=== PATIENT | male | born 1965 | race Caucasian/White ===

== ENCOUNTER 2018-12-27 22:48 | Inpatient (IN) | payer BC ==
[2018-12-27] MEDS ORDERED: Ondansetron 4 MG/2 ML SDV IVPUSH ONE (23:21)
[2018-12-27] MEDS ORDERED: Ondansetron 4 MG/2 ML SDV ONE (23:22)
[2018-12-27] MEDS ORDERED: Sodium Chloride 0.9% 1,000 ML IV SCH (23:45)
[2018-12-27] MEDS ORDERED: Morphine 2 MG/ML Syringe IVPUSH ONE (23:48)
--- NOTE | 2018-12-27 23:58 | EDM.PDOC ---
ED HPI GENERAL MEDICAL PROBLEM - General Chief Complaint: Abdominal Pain Stated Complaint: SEVERE SIDE PAIN Time Seen by Provider: 12/27/18 23:56 Source of Information: Reports: Patient History Limitations: Reports: No Limitations - History of Present Illness INITIAL COMMENTS - FREE TEXT/NARRATIVE: pt arrived with severer pain in the rt lower abdoman. This started about 4 thirty this pm. He does have a past history of kidney stones Onset: Today, Sudden Duration: Hour(s): Location: Reports: Abdomen Associated Symptoms: Reports: Loss of Appetite, Nausea/Vomiting, Other (pt has been very uncomfortable. ) Right Lower Abdominal Pain Score (Numeric/FACES): 8 - Related Data Allergies Allergy/AdvReac Type Severity Reaction Status Date / Time hydromorphone [From Dilaudid] Allergy Agitation Verified 12/27/18 23:40 Home Meds: Home Meds Hydrochlorothiazide 25 mg PO DAILY 08/24/13 [History] Lisinopril 40 mg PO DAILY 08/24/13 [History] Mometasone Furoate [Nasonex Salt Flat] 1 - 2 spray NICK BEDTIME PRN 08/24/13 [History ] buPROPion [Wellbutrin] 150 mg PO BEDTIME 12/27/18 [History] buPROPion [Wellbutrin] 300 mg PO DAILY 12/27/18 [History] Past Medical History Cardiovascular History: Reports: Hypertension Gastrointestinal History: Reports: GERD Musculoskeletal History: Reports: Fracture Neurological History: Reports: Concussion, Other (See Below) Other Neuro History: heat stroke - Infectious Disease History Infectious Disease History: Reports: Other (See Below) Other Infectious Disease History: lymes - Past Surgical History GI Surgical History: Reports: Cholecystectomy, Hernia, Abdominal, Other (See Below) Other GI Surgeries/Procedures: aquiles Musculoskeletal Surgical History: Reports: Other (See Below) Other Musculoskeletal Surgeries/Procedures:: right ankle Social & Family History - Tobacco Use Smoking Status *Q: Never Smoker Second Hand Smoke Exposure: No - Caffeine Use Caffeine Use: Reports: Soda - Recreational Drug Use Recreational Drug Use: No ED ROS GENERAL - Review of Systems Review Of Systems: See Below Constitutional: Reports: Diaphoresis, Decreased Appetite HEENT: Reports: No Symptoms Respiratory: Reports: No Symptoms Cardiovascular: Reports: No Symptoms Endocrine: Reports: No Symptoms GI/Abdominal: Reports: Abdominal Pain, Decreased Appetite, Distension, Nausea, Vomiting : Reports: No Symptoms Musculoskeletal: Reports: No Symptoms Skin: Reports: No Symptoms ED EXAM, GI/ABD - Physical Exam Exam: See Below Text/Narrative:: pt arrived with acute abdomanal pain in the rt lower quadrant. This started about 4 thirty this afternoon. Exam Limited By: No Limitations General Appearance: Alert, Anxious, Moderate Distress Ears: Normal TMs Nose: Normal Inspection Throat/Mouth: Normal Inspection Head: Atraumatic Neck: Normal Inspection Respiratory/Chest: No Respiratory Distress Cardiovascular: Regular Rate, Rhythm GI/Abdominal Exam: Tender, Other (pt is tender and guarded in the rt lower abdoman,. ) (Male) Exam: Deferred Rectal (Males) Exam: Deferred Back Exam: Normal Inspection Extremities: Normal Inspection Neurological: Alert, Oriented, Normal Cognition Course - Vital Signs Last Recorded V/S: Last Vital Signs Temp 36.1 C 12/27/18 23:33 Pulse 97 12/27/18 23:33 Resp 20 12/27/18 23:33 BP 156/106 H 12/27/18 23:33 Pulse Ox 91 L 12/27/18 23:33 - Orders/Labs/Meds Orders: Active Orders 24 hr Category Date Time Status Sodium Chloride 0.9% [Normal Saline] 1,000 ml Med 12/27/18 23:45 Active IV ASDIRECTED Sodium Chloride 0.9% [Normal Saline] 1,000 ml Med 12/28/18 01:15 Ordered IV ASDIRECTED Medication Orders Sodium Chloride (Normal Saline) 1,000 mls @ 999 mls/hr IV ASDIRECTED PRIYANKA Last Admin: 12/28/18 00:07 Dose: 999 mls/hr Sodium Chloride (Normal Saline) 1,000 mls @ 999 mls/hr IV ASDIRECTED PRIYANKA Labs: Laboratory Tests 12/27/18 12/27/18 12/27/18 Range/Units 23:47 23:50 23:50 WBC 19.8 H (4.5-11.0) K/uL RBC 5.66 (4.30-5.90) M/uL Hgb 16.2 H (12.0-15.0) g/dL Hct 47.8 (40.0-54.0) % MCV 85 (80-98) fL MCH 29 (27-31) pg MCHC 34 (32-36) % Plt Count 377 (150-400) K/uL Neut % (Auto) 72 H (36-66) % Lymph % (Auto) 16 L (24-44) % [place] % (Auto) 10 H (2-6) % Eos % (Auto) 2 (2-4) % Baso % (Auto) 0 (0-1) % Sodium 138 L (140-148) mmol/L Potassium 4.0 (3.6-5.2) mmol/L Chloride 103 (100-108) mmol/L Carbon Dioxide 25 (21-32) mmol/L Anion Gap 14.0 (5.0-14.0) mmol/L BUN 18 (7-18) mg/dL Creatinine 1.2 (0.8-1.3) mg/dL Est Cr Clr Drug Dosing 69.27 mL/min Estimated GFR (MDRD) > 60 (>60) Glucose 115 H (74-106) mg/dL Calcium 9.6 (8.5-10.1) mg/dL Total Bilirubin 0.4 (0.2-1.0) mg/dL AST 24 (15-37) U/L ALT 54 (12-78) U/L Alkaline Phosphatase 56 (46-116) U/L C-Reactive Protein 0.32 H (0.0-0.3) mg/dL Total Protein 7.8 (6.4-8.2) g/dL Albumin 4.2 (3.4-5.0) g/dL Globulin 3.6 H (2.3-3.5) g/dL Albumin/Globulin Ratio 1.2 (1.2-2.2) Urine Color Yellow (YELLOW) Urine Appearance Clear (CLEAR) Urine pH 6.0 (5.0-8.0) Ur Specific [place] 1.030 (1.008-1.030) Urine Protein Negative (NEGATIVE) mg/dL Urine Glucose (UA) Normal (NEGATIVE) mg/dL Urine Ketones Negative (NEGATIVE) mg/dL Urine Occult Blood Trace (NEGATIVE) Urine Nitrite Negative (NEGATIVE) Urine Bilirubin Negative (NEGATIVE) Urine Urobilinogen Normal (0.2-1.0) EU/dL Ur Leukocyte Esterase Negative (NEGATIVE) Urine RBC 0-5 (0-5) Urine WBC 0-5 (0-5) Ur Epithelial Cells Few Amorphous Sediment Not seen Urine Bacteria Rare Urine Mucus Not seen Meds: Medications Generic Name Dose Route Start Last Admin Trade Name Freq PRN Reason Stop Dose Admin Sodium Chloride 1,000 mls @ 999 mls/hr 12/27/18 23:45 12/28/18 00:07 Normal Saline IV 999 mls/hr ASDIRECTED PRIYANKA Administration Sodium Chloride 1,000 mls @ 999 mls/hr 12/28/18 01:15 Normal Saline IV ASDIRECTED PRIYANKA Discontinued Medications Generic Name Dose Route Start Last Admin Trade Name Freq PRN Reason Stop Dose Admin Sodium Chloride 85 mls @ 3.5 mls/sec 12/28/18 00:33 12/28/18 00:47 Normal Saline IV 12/28/18 00:34 3.5 mls/sec ASDIRECTED STA Administration Iopamidol 150 ml 12/28/18 00:33 12/28/18 00:47 Isovue-300 (61%) IV 12/28/18 00:34 150 ml . DIRECTED STA Administration Morphine Sulfate 2 mg 12/27/18 23:48 12/28/18 00:07 Morphine IVPUSH 12/27/18 23:49 2 mg ONETIME ONE Administration Morphine Sulfate 2 mg 12/28/18 01:16 Morphine IVPUSH 12/28/18 01:17 ONETIME ONE Ondansetron HCl 4 mg 12/27/18 23:21 12/27/18 23:30 Zofran IVPUSH 12/27/18 23:22 4 mg ONETIME ONE Administration Ondansetron HCl Confirm 12/27/18 23:22 12/27/18 23:45 Zofran Administered 12/27/18 23:23 Not Given Dose 4 [facility] - Re-Assessments/Exams Free Text/Narrative Re-Assessment/Exam: 12/28/18 01:24 pt had a wbc greater than 19,000. He had no fever. His cat scan of the abdoman showed acute appendicitis. Departure - Departure Time of Disposition: 01:25 Disposition: Admitted As Inpatient 68 Condition: Fair Clinical Impression: Acute appendicitis - Discharge Information Referrals: Anny Childs PA [Primary Care Provider] - Forms: ED Department Discharge Care Plan Goals: admit to Dr Walter. - My Orders Last 24 Hours: My Active Orders 12/27/18 23:45 Sodium Chloride 0.9% [Normal Saline] 1,000 ml IV ASDIRECTED 12/28/18 01:15 Sodium Chloride 0.9% [Normal Saline] 1,000 ml IV ASDIRECTED - Assessment/Plan Last 24 Hours: My Active Orders 12/27/18 23:45 Sodium Chloride 0.9% [Normal Saline] 1,000 ml IV ASDIRECTED 12/28/18 01:15 Sodium Chloride 0.9% [Normal Saline] 1,000 ml IV ASDIRECTED
[2018-12-28] MEDS ORDERED: Iopamidol 612 MG/ML 150 ML Bottle IV STA (00:33)
[2018-12-28] MEDS ORDERED: Sodium Chloride 0.9% 1,000 ML IV SCH ×2 (01:15→07:15)
[2018-12-28] MEDS ORDERED: Morphine 2 MG/ML Syringe IVPUSH ONE (01:16)
--- NOTE | 2018-12-28 01:18 | CRLCT ---
INDICATION: Right-sided abdominal pain TECHNIQUE: CT abdomen and pelvis acquired with 150 cc Isovue 300 IV contrast. COMPARISON: October 09, 2012 FINDINGS: Lower chest: 5 mm pulmonary nodule right middle lobe image 2 series 2. 3 mm pulmonary nodule left lower lobe image 18 series 2. Small hiatal hernia. Surgical material seen around the hernia. Liver: Hepatic steatosis. Spleen: Unremarkable. Pancreas: Unremarkable. Gallbladder and bile ducts: S/p cholecystectomy. Adrenal glands: Unremarkable. Kidneys: There are a few subcentimeter hypodensities on the right kidney, too small to accurately characterize. GI tract: The appendix measures 1.2 cm in diameter. There is mild periappendiceal fat stranding. No extraluminal air or abscess. There is an appendicolith. Vascular structures: Unremarkable. Lymph nodes: Unremarkable. Miscellaneous: Unremarkable. No free air or significant free fluid. Pelvic Organs: Unremarkable. Bones: Unremarkable for age. IMPRESSION: Acute appendicitis. No extraluminal air or abscess. Findings discussed with Dr. Cherry at 1:15 a.m. on December 28, 2018. Bilateral pulmonary nodules. Follow-up per Fleischner society guidelines recommended, as listed below. Small hiatal hernia with postsurgical changes. Hepatic steatosis. Status post cholecystectomy. MULTIPLE LOW RISK - nodule less than 6 mm: No routine follow-up. - nodule 6-8 mm: CT at 3-6 months, then consider CT at 18-24 months. - nodule greater than 8 mm: CT at 3-6 months, then consider CT at 18-24 months. MULTIPLE HIGH RISK - nodule less than 6 mm: Optional CT at 12 months. - nodule 6-8 mm: CT at 3-6 months, then at 18-24 months. - nodule greater than 8 mm: CT at 3-6 months, then at 18-24 months. Please note that all CT scans at this facility use dose modulation, iterative reconstruction, and/or weight-based dosing when appropriate to reduce radiation dose to as low as reasonably achievable. Dictated by Erin Naidu MD @ Dec 28 2018 1:07AM Signed by Dr. Erin Naidu @ Dec 28 2018 1:16AM
[2018-12-28] MEDS ORDERED: Piperacillin/Tazobactam 3.375 GM in Sodium Chloride 0.9% 50 ML IV SCH (02:00)
[2018-12-28] MEDS ORDERED: Morphine 4 MG/ML Syringe IVPUSH ONE (02:04)
[2018-12-28] MEDS ORDERED: LORazepam 2 MG/ML SDV IVPUSH ONE (02:05)
[2018-12-28] MEDS ORDERED: Ondansetron 4 MG/2 ML SDV IVPUSH PRN (02:51)
[2018-12-28] MEDS ORDERED: Promethazine 25 MG in Sodium Chloride 0.9% 50 ML IV PRN (02:52)
[2018-12-28] MEDS ORDERED: Promethazine 12.5 MG in Sodium Chloride 0.9% 50 ML IV PRN (02:52)
[2018-12-28] MEDS ORDERED: Scopolamine 1.5 MG Transdermal Patch TOP PRN (02:53)
[2018-12-28] MEDS ORDERED: diphenhydrAMINE 50 MG/ML SDV IV PRN (02:58)
[2018-12-28] MEDS ORDERED: diphenhydrAMINE 25 MG Cap PO PRN (02:59)
[2018-12-28] MEDS ORDERED: Nicotine 14 MG/24 Hr Patch TRDERM PRN (02:59)
[2018-12-28] MEDS ORDERED: Morphine 4 MG/ML Syringe IV PRN ×2 (03:00→07:03)
[2018-12-28] MEDS ORDERED: fentaNYL 100 MCG/2 ML SDV IV PRN (03:01)
[2018-12-28] MEDS: Sodium Chloride 0.9% 1,000 ML IV SCH ×2 (04:41→14:35)
[2018-12-28] MEDS ORDERED: Bupivacaine 0.5%/EPINEPHrine 1:200,000 50 ML MDV ONE (06:17)
[2018-12-28] MEDS ORDERED: Rocuronium 50 MG/5 ML Vial ONE (06:33)
[2018-12-28] MEDS ORDERED: Ondansetron 4 MG/2 ML SDV ONE (06:33)
[2018-12-28] MEDS ORDERED: Glycopyrrolate 0.2 MG/ML 5 ML MDV ONE (06:33)
[2018-12-28] MEDS ORDERED: Propofol 200 MG/20 ML SDV ONE (06:33)
[2018-12-28] MEDS ORDERED: Dexamethasone 4 MG/ML SDV ONE (06:33)
[2018-12-28] MEDS ORDERED: Succinylcholine 200 MG/10 ML MDV ONE (06:33)
[2018-12-28] MEDS ORDERED: Neostigmine Methylsulfate 1 MG/ML 5 ML Syringe ONE (06:33)
[2018-12-28] MEDS ORDERED: fentaNYL 250 MCG/5 ML SDV ONE (06:33)
[2018-12-28] MEDS ORDERED: hydrOXYzine HCl 100 MG/2 ML SDV IM PRN (07:04)
[2018-12-28] MEDS ORDERED: Lactated Ringers 1,000 ML ONE (07:31)
[2018-12-28] MEDS: Piperacillin/Tazobactam/Dext 3.375 GM in Premix Bag 1 BAG IV SCH ×3 (07:53→20:08)
--- NOTE | 2018-12-28 11:04 | OR ---
DATE OF PROCEDURE: 12/28/2018 SURGEON: Pancho Walter MD PROCEDURE: Laparoscopic appendectomy. FINDINGS: Appendicitis, nonperforated. No evidence of abscess. COMPLICATIONS: None. 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 ANESTHESIA: General/local. RISKS: Risks, benefits, alternatives, and limitations including, but not limited to infection, bleeding, and perforation of abdominal structures, injury to bowel and bladder, other risks not listed here were explained to the patient, who wished to proceed. PROCEDURE IN DETAIL: The patient was placed in supine position. A supraumbilical curvilinear incision was made. A Veress needle was used to enter the abdomen without abnormality and a drop test was performed without abnormality. This was then followed by an Optiview trocar. No evidence of enterotomy or injury was noted. Two additional 5 mm ports were entered under direct visualization, one in the right upper quadrant, one retirement between the umbilicus and the pubic bone. These were also entered under direct visualization. No evidence of injuries noted. Appendix was readily identified. It was densely adhered to the right abdominal wall. This was freed using electrocautery. Once this was mobilized, a feliz load stapler was able to be used to transect the base of the appendix. This was delivered from the abdomen without difficulty. The staple line was inspected multiple times. No abnormalities were noted. The abdomen was then irrigated with 2 L of normal saline. Once irrigation was completed, the patient was moved in multiple positions to suction and irrigate the remaining fluid. Entry point was inspected. No abnormalities were noted. The air was removed. The wounds were closed with 3-0 Vicryl and 4-0 Vicryl after irrigation. Dressings were applied. The patient tolerated the procedure well. Pancho Walter MD /[id number]
[2018-12-28] MEDS: Acetaminophen/HYDROcodone 325-5 MG Tab PO PRN ×2 (15:06→20:07)
[2018-12-29] MEDS: Piperacillin/Tazobactam/Dext 3.375 GM in Premix Bag 1 BAG IV SCH ×4 (01:51→19:37)
[2018-12-29] MEDS: Acetaminophen/HYDROcodone 325-5 MG Tab PO PRN ×4 (01:52→22:16)
--- NOTE | 2018-12-29 09:22 | CONS ---
DATE OF SERVICE: 12/28/2018 REFERRING PHYSICIAN: CONSULTING PHYSICIAN: Pancho Walter MD REASON FOR CONSULTATION: Right lower quadrant abdominal pain. HISTORY OF PRESENT ILLNESS: This is a pleasant 53-year-old male, who has had right lower quadrant abdominal pain, started at approximately 1600 hours, modified by history of kidney stones, associated with nausea and vomiting. Pain is 8-9/10, made worse by movement. PAST MEDICAL HISTORY: Hypertension, cholelithiasis, cholecystitis, GERD, history of chronic hernia, and ankle repair. SOCIAL HISTORY: Does not smoke. 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 FAMILY HISTORY: No family history of squamous cell carcinoma. REVIEW OF SYSTEMS: GENERAL: Please see above and below. HEENT: No symptoms. RESPIRATORY: No shortness of breath. CARDIOVASCULAR: No history of myocardial infarction. ENDOCRINE: No symptoms. GI: As described above and below. GENITOURINARY: No dysuria. MUSCULOSKELETAL: No history of ankle fracture. SKIN: No other abnormalities. The remainder review of systems is reviewed and is negative. PHYSICAL EXAMINATION: VITAL SIGNS: Stable. GENERAL: The patient is appropriate for condition. HEENT: Pupils are equal. NECK: Supple. LUNGS: Clear. CARDIOVASCULAR: Regular rhythm and rate. ABDOMEN: Tenderness to palpation in the right lower quadrant. EXTREMITIES: Full range of motion. NEUROLOGIC: Alert and oriented x3. PSYCH: No gross depression. LABORATORY RESULTS: Show white blood cell count of 18,000. His creatinine is 1.1. Urinalysis is negative. IMAGING: I did review the CT scan with acute appendicitis without evidence of abscess. ASSESSMENT: Appendicitis. PLAN: The patient will be taken to the operating room for laparoscopic appendectomy. We discussed risks, benefits, alternatives, and limitations including, but not limited to infection, bleeding, and injury to abdominal structures, the possibility of open surgery and other risks not listed here. The patient understands these risks and wishes to proceed. Pancho Walter MD /[id number]
--- NOTE | 2018-12-29 11:01 | PN ---
DATE OF SERVICE: 12/29/2018 SUBJECTIVE: Patient is doing better today. Pain is controlled. No nausea, vomiting, shortness of breath, or chest pain. Passing gas. OBJECTIVE: VITAL SIGNS: Vital signs are stable, afebrile. CARDIOVASCULAR: Regular rhythm and rate. RESPIRATORY: Lungs are clear to auscultation bilaterally. ABDOMEN: Incision is healing well. ASSESSMENT: Status post appendectomy. PLAN: The patient will be given another 24 hours of antibiotics. I will reassess at that time. He is to advance his diet. He may shower. Activity is encouraged. Pancho Walter MD /[id number]
[2018-12-30] MEDS: Piperacillin/Tazobactam/Dext 3.375 GM in Premix Bag 1 BAG IV SCH ×2 (02:06→07:03)
[2018-12-30] MEDS: Acetaminophen/HYDROcodone 325-5 MG Tab PO PRN (05:29)
--- NOTE | 2018-12-30 11:04 | DISCH ---
DISCHARGE DIAGNOSIS: Appendicitis. HOSPITAL COURSE: A pleasant 53-year-old male who was diagnosed with appendicitis. The patient underwent an uneventful laparoscopic appendectomy. He had non-perforated appendicitis. Prior to discharge, his pain was well controlled. He had a normal white blood cell count. He had no fever for greater than 48 hours. No nausea, vomiting, shortness of breath or chest pain, and having bowel movements. Pain is well controlled with very limited narcotics. FOLLOWUP: With Surgery in 7 to 14 days. ACTIVITY: No lifting greater than 30 pounds x30 days. DISCHARGE MEDICATIONS: Please see MAR, but include [place] for pain.
--- NOTE | 2018-12-30 11:10 | PN ---
DATE OF SERVICE: 12/30/2018 SUBJECTIVE: The patient is doing very well. Pain is well controlled. No nausea, vomiting, shortness of breath, or chest pain. Passing gas, a large amount. Is having some bowel movements. OBJECTIVE: VITAL SIGNS: Stable. He is afebrile per nursing report. CARDIOVASCULAR: Regular rhythm and rate. RESPIRATORY: Lungs are clear to auscultation bilaterally. ABDOMEN: Incision is healing well. ASSESSMENT: Status post laparoscopic appendectomy. PLAN: The patient will be discharged today. Please see discharge summary for further details. Pancho Walter MD /[id number]
== END 2018-12-30 08:45 | disposition home or self-care (01) | DRG 225 ==
LOC: JP.ED 22:48 → JP.MS 12-28 01:44
PROVIDERS: ADMIT Surgery; ATTEND Surgery
PROC: 0DTJ4ZZ Resection of Appendix, Percutaneous Endoscopic Approach (ICD-10-PCS; principal; 2018-12-28)
DX: K35.80 Unspecified acute appendicitis (principal); K21.9 Gastro-esophageal reflux disease without esophagitis; I10 Essential (primary) hypertension; Z88.8 Allergy status to other drugs, medicaments and biological substances; Z87.442 Personal history of urinary calculi; Z79.899 Other long term (current) drug therapy; Z90.49 Acquired absence of other specified parts of digestive tract; Z98.890 Other specified postprocedural states
CPT/HCPCS: 36415; 74177; 80048; 80053; 81001; 85025; 85027; 86140; 87070; 87075; 87205; 96361; 96374; 96375; 99285-25; A9270-GY; J0330; J1100; J2060; J2270; J2405; J2543; J2704; J2710; J3010; J3490; J7030; J7050; J7120

== ENCOUNTER 2019-03-01 19:03 | Emergency (ER) | payer SELFPAY ==
--- NOTE | 2019-03-01 21:09 | EDM.PDOC ---
ED HPI GENERAL MEDICAL PROBLEM - General Chief Complaint: Skin Complaint Stated Complaint: LEFT ARM RED/ITCHY Time Seen by Provider: 03/01/19 20:17 Source of Information: Reports: Patient History Limitations: Reports: No Limitations - History of Present Illness INITIAL COMMENTS - FREE TEXT/NARRATIVE: chief complaint: skin rash, exposure to scabies This is a 54 year old male, present to ER with his . 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 Has been exposed to scabies in the class room now with a similar rash to the left lower arm - not including fingers or thumb. 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: Other (see below) (benadryl ) - Related Data Allergies Allergy/AdvReac Type Severity Reaction Status Date / Time hydromorphone [From Dilaudid] Allergy Agitation Verified 03/01/19 20:23 Home Meds: Home Meds Hydrochlorothiazide 25 mg PO DAILY 08/24/13 [History] Lisinopril 40 mg PO DAILY 08/24/13 [History] buPROPion [Wellbutrin] 150 mg PO BEDTIME 12/27/18 [History] buPROPion [Wellbutrin] 300 mg PO DAILY 12/27/18 [History] Past Medical History HEENT History: Reports: Impaired Vision Cardiovascular History: Reports: Hypertension Respiratory History: Reports: Asthma, Sleep Apnea Gastrointestinal History: Reports: GERD, Hiatal Hernia Genitourinary History: Reports: Renal Calculus Musculoskeletal History: Reports: Arthritis, Fracture Neurological History: Reports: Concussion, Other (See Below) Other Neuro History: heat stroke Psychiatric History: Reports: Anxiety - Infectious Disease History Infectious Disease History: Reports: Mononucleosis Other Infectious Disease History: lymes - Past Surgical History GI Surgical History: Reports: Appendectomy, Cholecystectomy, Hernia, Abdominal, Aquiles Fundoplication, Other (See Below) Other GI Surgeries/Procedures: aquiles Musculoskeletal Surgical History: Reports: Other (See Below) Other Musculoskeletal Surgeries/Procedures:: right ankle Social & Family History - Tobacco Use Smoking Status *Q: Never Smoker - Caffeine Use Caffeine Use: Reports: Soda - Recreational Drug Use Recreational Drug Use: No - Living Situation & Occupation Living situation: Reports: 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[email or web address] ED ROS GENERAL - Review of Systems Review Of Systems: Unable To Obtain Constitutional: Reports: No Symptoms HEENT: Reports: No Symptoms Respiratory: Reports: No Symptoms Cardiovascular: Reports: No Symptoms Endocrine: Reports: No Symptoms GI/Abdominal: Reports: No Symptoms : Reports: No Symptoms Musculoskeletal: Reports: No Symptoms Skin: Reports: No Symptoms Neurological: Reports: No Symptoms Psychiatric: Reports: No Symptoms Hematologic/Lymphatic: Reports: No Symptoms Immunologic: Reports: No Symptoms ED EXAM, SKIN/RASH Exam: See Below Exam Limited By: No Limitations General Appearance: Alert, WD/WN, No Apparent Distress Neurological: Alert, Oriented, CN II-XII Intact, Normal Cognition, Normal Gait, Normal Reflexes, No Motor/Sensory Deficits Psychiatric: Normal Affect, Normal Mood Skin: Erythema, Rash Location, Skin: Upper Extremity, Left Characteristics: Maculopapular Associated features: Warmth, Inflammation (intense pruritis to rash) Lymphatic: No Adenopathy Course - Vital Signs Last Recorded V/S: Last Vital Signs Temp 36.1 C 03/01/19 20:25 Pulse 81 03/01/19 20:25 Resp 17 03/01/19 20:25 BP 146/81 H 03/01/19 20:25 Pulse Ox 96 03/01/19 20:25 - Re-Assessments/Exams Free Text/Narrative Re-Assessment/Exam: discussed infection control and medical treatment agrees with plan of care Departure - Departure Time of Disposition: 21:06 Disposition: Home, Self-Care 01 Condition: Good Clinical Impression: Infestation by Sarcoptes scabiei - Discharge Information *PRESCRIPTION DRUG MONITORING PROGRAM REVIEWED*: No *COPY OF PRESCRIPTION DRUG MONITORING REPORT IN PATIENT THO: No Instructions: Scabies, Adult Referrals: Anny Childs PA [Primary Care Provider] - Forms: ED Department Discharge, ED Return to Work/School Form Care Plan Goals: Scabies -Permethrin 5% apply as directed -keep rash area wrapped until treated -continue Benadryl 25 mg po every 6 hours as needed for rash return to ER for any increase redness, pain, discharge, or any concerns. - Problem List & Annotations (1) Infestation by Sarcoptes scabiei SNOMED Code(s): 905012247, [id number] Code(s): B86 - SCABIES Status: Acute Priority: High - Problem List Review Problem List Initiated/Reviewed/Updated: Yes - Assessment/Plan Plan: Scabies -Permethrin 5% apply as directed -keep rash area wrapped until treated -continue Benadryl 25 mg po every 6 hours as needed for rash return to ER for any increase redness, pain, discharge, or any concerns.
== END 2019-03-01 21:20 | disposition home or self-care (01) ==
LOC: JP.ED 19:03
DX: B86 Scabies (principal); I10 Essential (primary) hypertension; J45.909 Unspecified asthma, uncomplicated; Z88.5 Allergy status to narcotic agent; Z79.899 Other long term (current) drug therapy
CPT/HCPCS: 99282

== ENCOUNTER 2019-12-19 08:47 | Day surgery (SDC) | payer BC ==
[~2019-12-19 08:47] MED LIST: Acetaminophen 500 MG Tab PO ONE; Albuterol 8 GM Inhaler (PTOM) INH ONE; Bupivacaine 0.5% 50 ML MDV ONE; Dexamethasone 4 MG/ML SDV ONE; Dextrose 5%-Lactated Ringers 1,000 ML IV SCH; Glycopyrrolate 0.2 MG/ML 5 ML MDV ONE; Lidocaine 1% with EPINEPHrine 1:100,000 50 ML MDV ONE; Neostigmine Methylsulfate 1 MG/ML 5 ML Syringe ONE; Ondansetron 4 MG/2 ML SDV ONE; Propofol 200 MG/20 ML SDV ONE; Rocuronium 50 MG/5 ML Vial ONE; Succinylcholine 200 MG/10 ML MDV ONE; fentaNYL 250 MCG/5 ML SDV ONE
[2019-12-19] MEDS ORDERED: ceFAZolin 2 GM in Premix Bag 1 BAG IV ONE (09:00)
[2019-12-19] MEDS ORDERED: Albuterol 8 GM Inhaler INH ONE (09:30)
[2019-12-19] MEDS ORDERED: fentaNYL 250 MCG/5 ML SDV ONE (10:24)
[2019-12-19] MEDS ORDERED: Ondansetron 4 MG/2 ML SDV IVPUSH ONE (13:17)
--- NOTE | 2019-12-31 11:39 | OR ---
DATE OF PROCEDURE: 12/19/2019 SURGEON: Evaristo Hadley MD PREOPERATIVE DIAGNOSIS: Left inguinal hernia. POSTOPERATIVE DIAGNOSES: 1. Incarcerated direct left inguinal hernia. 2. Left ilioinguinal and iliohypogastric nerves at risk for scar entrapment. OPERATIVE PROCEDURES: Left inguinal exploration with: 1. Repair of incarcerated left inguinal hernia with mesh plug technique (57438). 2. Excision of portion of left ilioinguinal nerve (72994). 3. Excision of portion of left iliohypogastric nerve (75052). ANESTHESIA: General. CREDIT RELATIONSHIP MANAGER: Nahomi Joshi PA-C INDICATIONS FOR PROCEDURE: This is a 54-year-old male, presenting with an increasingly symptomatic left inguinal hernia. After preop evaluation and discussion, the patient wished to proceed with an open repair with a mesh plug technique. Potential risks of the procedure including bleeding, infection, injury to underlying viscera, problems with the mesh becoming infected or the hernia recurring were gone over that we will often remove nerve branches in the area that were felt to be likely to be involved in chronic pain resulting in postoperative scarring so as to avoid that neuropathic pain were gone over and the patient wishes to proceed. DETAILS OF PROCEDURE: The patient was taken to the operating room and placed in a supine position. After general endotracheal anesthesia was induced, the abdomen and groin areas were prepped and draped. A standard left inguinal incision was made and carried down through the skin, subcutaneous tissue, and through the external oblique aponeurosis. Subaponeurotic flaps were then raised superiorly and inferiorly, and the cord structures were then mobilized upward and dissection of the cremasteric muscle fibers away from the cord structures showed no evidence of an indirect hernia. The patient did have a large defect in the medial floor consistent with a direct hernia. This was dissected free as it prolapsed down over the pubic bone somewhat and contained some incarcerated component, probably some perivesical fat. This was reduced along with the hernia and an extra-large mesh plug was then selected. This was placed into the defect underneath the fascial edges and fixed to the Don ligament inferiorly with titanium tacking screws to the underside of the conjoint tendon medially, superiorly, and laterally with horizontal mattress sutures of 0 Vicryl stitch. The edge of the conjoint tendon was then affixed to the shelving edge of the inguinal ligament with a running 0 Vicryl stitch. Both the ilioinguinal nerve and iliohypogastric nerves would be at risk for scar entrapment as the flat portion of the mesh plug technique would divide directly over them. Given this, they were divided and then resected out to a far lateral aspect of the incision. The flat portion of the mesh plug system was then placed and sutured lateral to the cord structures with some 3-0 Vicryl stitch and fixed to the pubic tubercle with titanium tacking screw. No further problems were noted at this point and the external oblique aponeurosis approximated with a 3-0 Vicryl stitch as was Britt's fascia and the skin closed with a 4-0 Vicryl subcuticular stitch. The wound was anesthetized with 1% lidocaine mixed with Marcaine and the patient was given some IV Toradol and the patient was taken to the recovery room in satisfactory condition. Physician mechanic's assistant, Nahomi Joshi, played an essential role in assisting in this case, helping to position the patient, retract structures as needed, as well as suturing and cutting sutures when indicated. Her presence improved patient safety and decreased operative time. Evaristo Hadley MD /[id number]
== END 2019-12-19 14:54 | disposition home or self-care (01) ==
LOC: JP.SDS 08:47
PROVIDERS: ATTEND Surgery
DX: K40.30 Unilateral inguinal hernia, with obstruction, without gangrene, not specified as recurrent (principal); G57.82 Other specified mononeuropathies of left lower limb; I10 Essential (primary) hypertension; G47.33 Obstructive sleep apnea (adult) (pediatric); F41.9 Anxiety disorder, unspecified; F90.9 Attention-deficit hyperactivity disorder, unspecified type; E78.00 Pure hypercholesterolemia, unspecified; F41.1 Generalized anxiety disorder; N40.0 Benign prostatic hyperplasia without lower urinary tract symptoms; E78.5 Hyperlipidemia, unspecified; E66.9 Obesity, unspecified; Z68.37 Body mass index [BMI] 37.0-37.9, adult; Z99.89 Dependence on other enabling machines and devices
CPT/HCPCS: 49507; 64772; 88302; A9270; C1713; C1781; J0330; J0690; J1100; J2405; J2704; J2710; J3010; J3490; J7121

== ENCOUNTER 2020-04-18 09:05 | Emergency (ER) | payer BC ==
[2020-04-18] MEDS ORDERED: Ondansetron 4 MG/2 ML SDV IVPUSH ONE (09:52)
[2020-04-18] MEDS ORDERED: Ketorolac 30 MG/ML SDV IVPUSH ONE (09:52)
--- NOTE | 2020-04-18 10:25 | EDM.PDOC ---
ED HPI GENERAL MEDICAL PROBLEM - General Chief Complaint: Genitourinary Problem Stated Complaint: POSSIBLE KIDNEY STONE Time Seen by Provider: 04/18/20 10:05 Source of Information: Reports: Patient, Family History Limitations: Reports: No Limitations - History of Present Illness INITIAL COMMENTS - FREE TEXT/NARRATIVE: 55-year-old male with a history of nephrolithiasis, developed sudden right flank pain, urinary urgency, and significant nausea at 8 AM this morning, roughly 2 hours ago. It feels similar to past episodes of "kidney stones". He has several abdominal surgeries in his history including cholecystectomy and appendectomy and hiatal hernia surgery. No recent illness. Onset: Sudden Duration: Hour(s): (2 hours ago) Location: Reports: Other (Right flank) Associated Symptoms: Reports: Malaise, Nausea/Vomiting. Denies: Confusion, Chest Pain, Cough, Fever/Chills, Headaches, Shortness of Breath - Related Data Allergies Allergy/AdvReac Type Severity Reaction Status Date / Time hydromorphone [From Dilaudid] AdvReac Agitation Verified 04/18/20 10:01 naltrexone AdvReac Nausea and Verified 04/18/20 10:01 Vomiting simvastatin AdvReac Muscle Verified 04/18/20 10:01 Aches Home Meds: Home Meds Hydrochlorothiazide 25 mg PO DAILY 08/24/13 [History] buPROPion [Wellbutrin] 450 mg PO DAILY 12/27/18 [History] Albuterol [Proventil HFA] 1 - 2 puff IH Q4H PRN 12/18/19 [History] Benzonatate [Tessalon Perle] 100 mg PO TID PRN 12/18/19 [History] Codeine/guaiFENesin [guaiFENesin-Codeine Syrup] 10 ml PO Q4HR PRN 12/18/19 [History] Cyclobenzaprine [Flexeril] 10 mg PO TID PRN 12/18/19 [History] Fexofenadine [Katty] 60 mg PO DAILY 12/18/19 [History] Fluticasone Propion/Salmeterol [Advair 250-50 Diskus] 1 puff IH BID 12/18/19 [History] Fluticasone Propionate [Flonase] 2 spray NASBOTH DAILY 12/18/19 [History] Ibuprofen 400 mg PO Q6H PRN 12/18/19 [History] Multivitamin with Minerals [Multiple Vitamin] 1 tab PO DAILY 12/18/19 [History] [place]-3/DHA/Epa/Fish Oil [[place] 3 500 Softgel] 1,000 mg PO DAILY 12/18/19 [History] Omeprazole 20 mg PO DAILY 12/18/19 [History] Ondansetron [Zofran ODT] 4 mg PO Q8H PRN 12/18/19 [History] amLODIPine [Norvasc] 10 mg PO DAILY 12/18/19 [History] tadalafiL [Cialis] 5 mg PO DAILY PRN 04/18/20 [History] Past Medical History HEENT History: Reports: Impaired Vision Cardiovascular History: Reports: Hypertension Respiratory History: Reports: Asthma, Sleep Apnea Gastrointestinal History: Reports: GERD, Hiatal Hernia Genitourinary History: Reports: Renal Calculus Musculoskeletal History: Reports: Arthritis, Fracture Neurological History: Reports: Concussion, Other (See Below) Other Neuro History: heat stroke Psychiatric History: Reports: Anxiety Endocrine/Metabolic History: Reports: Obesity/BMI 30+ - Infectious Disease History Infectious Disease History: Reports: Mononucleosis Other Infectious Disease History: lymes - Past Surgical History Head Surgeries/Procedures: Reports: None HEENT Surgical History: Reports: None Cardiovascular Surgical History: Reports: None Respiratory Surgical History: Reports: None GI Surgical History: Reports: Appendectomy, Cholecystectomy, Hernia, Abdominal, Aquiles Fundoplication, Other (See Below) Other GI Surgeries/Procedures: aquiles Endocrine Surgical History: Reports: None Neurological Surgical History: Reports: None Musculoskeletal Surgical History: Reports: Other (See Below) Other Musculoskeletal Surgeries/Procedures:: right ankle Dermatological Surgical History: Reports: None Social & Family History - Family History Family Medical History: No Pertinent Family History - Tobacco Use Tobacco Use Status *Q: Never Tobacco User Second Hand Smoke Exposure: No - Caffeine Use Caffeine Use: Reports: Soda - Recreational Drug Use Recreational Drug Use: No - Living Situation & Occupation Living situation: Reports: 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 Denies: Fever, Chills Respiratory: Denies: Shortness of Breath Cardiovascular: Denies: Chest Pain GI/Abdominal: Reports: Abdominal Pain (Right lower quadrant radiating to the right flank), Nausea. Denies: Diarrhea : Reports: Flank Pain, Urgency. Denies: Hematuria (Right side) Skin: Reports: No Symptoms Neurological: Reports: No Symptoms Psychiatric: Reports: Anxiety ED EXAM, GENERAL - Physical Exam Exam: See Below Exam Limited By: No Limitations General Appearance: Alert, Moderate Distress Respiratory/Chest: No Respiratory Distress, Lungs Clear Cardiovascular: Regular Rate, Rhythm GI/Abdominal: Tender (Reacts with some discomfort to palpation along the right abdomen, significantly overweight) Back Exam: No: CVA Tenderness (R), CVA Tenderness (L) Psychiatric: Anxious Skin Exam: Warm, Dry Course - Vital Signs Last Recorded V/S: Last Vital Signs Temp 98.3 F 04/18/20 10:06 Pulse 79 04/18/20 10:06 Resp 20 04/18/20 10:06 BP 167/101 H 04/18/20 10:06 Pulse Ox 97 04/18/20 10:06 - Orders/Labs/Meds Labs: Laboratory Tests 04/18/20 Range/Units 10:12 Urine Color Yellow (YELLOW) Urine Appearance Clear (CLEAR) Urine pH 7.0 (5.0-8.0) Ur Specific [place] >= 1.030 (1.008-1.030) Urine Protein Negative (NEGATIVE) mg/dL Urine Glucose (UA) Negative (NEGATIVE) mg/dL Urine Ketones Negative (NEGATIVE) mg/dL Urine Occult Blood Moderate H (NEGATIVE) Urine Nitrite Negative (NEGATIVE) Urine Bilirubin Negative (NEGATIVE) Urine Urobilinogen 0.2 (0.2-1.0) EU/dL Ur Leukocyte Esterase Negative (NEGATIVE) Urine RBC 50-75 H (0-5) Urine WBC Not seen (0-5) Ur Epithelial Cells Rare Amorphous Sediment Not seen Urine Bacteria Not seen Urine Mucus Not seen Meds: Medications Discontinued Medications Generic Name Dose Route Start Last Admin Trade Name Freq PRN Reason Stop Dose Admin Ketorolac Tromethamine 30 mg 04/18/20 09:52 04/18/20 09:58 Toradol IVPUSH 04/18/20 09:53 30 mg ONETIME ONE Administration Ondansetron HCl 4 mg 04/18/20 09:52 04/18/20 09:59 Zofran IVPUSH 04/18/20 09:53 4 mg ONETIME ONE Administration Tamsulosin HCl 0.4 mg 04/18/20 11:19 04/18/20 11:26 Flomax PO 04/18/20 11:20 0.4 mg ONETIME ONE Administration - Re-Assessments/Exams Free Text/Narrative Re-Assessment/Exam: 04/18/20 10:24 IV was started, patient was given 30 mg of IV Toradol and 4 mg of IV Zofran. When his symptoms started to improve, he was sent back for a CT of the abdomen and pelvis without contrast. UA was also sent for evaluation. 04/18/20 11:30 UA revealed RBCs but no evidence of infection. Medications did help his symptoms, CT confirmed a 2 to 3 mm mid ureteral stone on the right side. There was mild hydronephrosis. He was given 0.4 mg of oral Flomax, and will be discharged with additional doses of Toradol, 10 doses of hydrocodone, and a prescription for daily Flomax if needed. He can return if still having signi ficant symptoms after 2 or 3 days or return sooner if worsening such as fever, vomiting the medication or intractable pain Departure - Departure Time of Disposition: 11:52 Disposition: Home, Self-Care 01 Clinical Impression: Kidney stone - Discharge Information Instructions: Kidney Stones Referrals: Anny Childs PA [Primary Care Provider] - Forms: ED Department Discharge Care Plan Goals: As long as you are continuing to have symptoms, take 1 Toradol pill every 6 hours and add hydrocodone for extra pain control if needed. 1 Flomax daily, and consider rechecking in 2 to 3 days if still having any symptoms or return anytime if worsening despite treatment. You should be rechecked sooner if you develop a fever, vomiting the medications are having persistent intractable pain. Sepsis Event Note (ED) - Evaluation Sepsis Screening Result: No Definite Risk - Focused Exam Vital Signs: Vital Signs Temp Pulse Resp BP Pulse Ox 04/18/20 10:06 98.3 F 79 20 167/101 H 97 04/18/20 09:28 98.3 F 79 20 167/101 H 97
[2020-04-18] MEDS ORDERED: Tamsulosin 0.4 MG Cap.ER PO ONE (11:19)
--- NOTE | 2020-04-18 11:25 | CT ---
Abdomen Pelvis wo Cont CLINICAL HISTORY: Right flank pain COMPARISON: June 2019. TECHNIQUE: Axial tomographic images are obtained from the dome of the diaphragm to the pubic symphysis without IV contrast enhancement. No oral contrast was used. The dosage reduction and iterative reconstruction techniques employed. FINDINGS: The lung bases are clear. There appears to be a a previous Harlan procedure The liver shows some mildly heterogeneous low-attenuation which is felt to represent some diffuse fatty infiltration. The gallbladder has been removed. The spleen has a normal size and shape. The pancreas shows no mass or inflammatory change. The adrenal glands appear normal bilaterally. The kidneys show a punctate nonobstructing renal calculus in both lower poles there is some mild right-sided pelvocaliectasis. There is a 2 x 3 mm stone in the mid right ureter. Left ureter has normal course and caliber The bladder is nondistended. The aorta has a normal contour. There is no suspicious retroperitoneal adenopathy. Small intestinal configuration is nonacute. The appendix has been removed. Abdominal pelvic fat planes and low pelvic side antunez are well demarcated. IMPRESSION: 2 x 3 mm right mid ureteral stone. Mild right-sided pelvocaliectasis Punctate nonobstructing stone lower pole both kidneys.
== END 2020-04-18 11:52 | disposition home or self-care (01) ==
LOC: JP.ED 09:05
DX: N20.2 Calculus of kidney with calculus of ureter (principal); I10 Essential (primary) hypertension; J45.909 Unspecified asthma, uncomplicated; K21.9 Gastro-esophageal reflux disease without esophagitis; F41.9 Anxiety disorder, unspecified; E66.9 Obesity, unspecified; Z68.37 Body mass index [BMI] 37.0-37.9, adult; Z88.5 Allergy status to narcotic agent; Z88.8 Allergy status to other drugs, medicaments and biological substances; Z79.899 Other long term (current) drug therapy
CPT/HCPCS: 74176; 74176-26; 81001; 96374; 96375; 99283; 99284-25; A9270-GY; J1885; J2405

== ENCOUNTER 2020-04-29 06:35 | Day surgery (SDC) | payer BC ==
[2020-04-29] MEDS ORDERED: Bupivacaine 0.5% 30 ML SDV ONE (06:49)
[2020-04-29] MEDS ORDERED: ceFAZolin 2 GM in Premix Bag 1 BAG IV ONE (07:00)
[2020-04-29] MEDS ORDERED: Lactated Ringers 1,000 ML IV SCH (07:00)
[2020-04-29] MEDS ORDERED: ceFAZolin 2 GM in Sodium Chloride 0.9% 100 ML IV ONE (07:00)
[2020-04-29] MEDS ORDERED: Midazolam 1 MG/ML 2 ML SDV ONE ×2 (07:19→09:24)
[2020-04-29] MEDS ORDERED: fentaNYL 100 MCG/2 ML SDV ONE ×3 (07:19→09:55)
[2020-04-29] MEDS ORDERED: Propofol 200 MG/20 ML SDV ONE ×6 (07:19→09:54)
--- NOTE | 2020-05-01 12:06 | OR ---
DATE OF PROCEDURE: 04/29/2020 SURGEON: Damien Finn MD PREOPERATIVE DIAGNOSIS: SLAP tear, right shoulder. POSTOPERATIVE DIAGNOSES: 1. Complex SLAP tear, right shoulder. 2. Degenerative joint disease, glenohumeral joint. 3. Severe tendinopathy of biceps tendon. 4. Mild tendinopathy, subscapularis. 5. Rotator cuff impingement. PROCEDURE: 1. Arthroscopy, right shoulder, with biceps tenotomy. 2. Repair of anterior and superior labrum. 3. Chondroplasty of glenoid and humeral head. 4. Subacromial decompression with acromioplasty. DRYING FRAME OPERATOR: MIKI Boone ANESTHESIA: Scalene block with sedation. INDICATIONS: Mr. Malik is a 55-year-old gentleman with a history of [id number] right shoulder pain, which became significantly worse after a remodeling project in his home that required use of a jackhammer. He now has persistent pain in the right shoulder, which is worse with certain activities and positions. Examination and imaging are consistent with a tear of the superior labrum and impingement of the rotator cuff. He now presents to the operating room for arthroscopic evaluation of the rotator cuff with decompression repair as necessary and evaluation of the glenoid labrum for possible repair. Risks, benefits, potential complications of the procedure were discussed. DESCRIPTION OF PROCEDURE: After adequate anesthesia was obtained, patient was placed in the lateral decubitus position and secured with the beanbag positioner. Right shoulder and arm were then prepped and draped in sterile fashion. Initially, 10 pounds of traction was placed in a shoulder traction unit. A standard posterior portal was established. The scope was introduced. This showed significant degenerative changes throughout the shoulder with degenerative labral tear anteriorly extending up into the superior labrum with detachment from the anchor consistent with a complex SLAP tear. Also showed degenerative changes of the humeral head with full-thickness cartilage loss in the central portion. Milder degenerative changes of the glenoid articular surface were noted. An additional 5 pounds of traction was placed to aid in visualization. The subscapularis showed some mild tendinopathy without ricky tear. Biceps tendon showed severe tendinopathy throughout the length of the intra-articular portion of the tendon, which was again attached to a torn labrum. The undersurface of the rotator cuff was completely intact, did show some synovitis and irritation at the musculotendinous junction but no evidence of tear or tendinopathy. The anterior portal was established. Shaver was used to debride the anterior and superior labrum delineating the extent of the tear. Due to the significant tear of the labrum and the tendinopathy of the biceps tendon, decision was to proceed with a biceps tenotomy. This was accomplished with use of the radiofrequency ablation wand. An additional accessory portal was established through the rotator cuff interval and initially a shaver was used to debride the edge of the glenoid anteriorly and superiorly removing a layer of articular cartilage. A lorna was then used to lightly decorticate the edge of the glenoid. Drill holes were then made superiorly for placement of 2 Mitek Gryphon anchors. An additional anchor was placed anteriorly. One limb of each of the suture pairs was then passed around the glenoid with a BirdBeak penetrating suture passer. These were then tied down sequentially from anterior to posterior securing the labrum to the glenoid. The remaining degenerative area of the glenoid was lightly debrided with the ablation wand. The scope was switched from the posterior to the anterior portal and the shaver was used to debride the inferior and posterior labrum and lightly debride the loose articular cartilage from the glenoid and humeral head. All loose fragments were removed. Scope was withdrawn and placed into the subacromial space. This showed moderate inflammation of the bursa and impingement on the coracoacromial ligament without evidence of a rotator cuff tear. Some fraying of the superior surface of the cuff was noted. Working through the accessory portal, coracoacromial ligament was taken off the underside of the acromion and a lorna was then utilized to perform an acromioplasty removing approximately 4 mm from the undersurface of the anterolateral edge of the acromion. The bursa was cleared for visualization, and the remainder of the rotator cuff was visualized. There was no evidence of rotator cuff tear. The scope was switched from the posterior to the accessory portal and the rotator cuff was evaluated from this position, taken through internal and external rotation and abduction with no other abnormalities identified and the level of the acromioplasty appeared to be adequate. Scope was withdrawn. Shoulder was drained. Port sites were closed in a standard fashion. Steri-Strips were applied. Sterile dressing was then placed. The patient tolerated procedure well, there were no complications. Taken from the operating room in stable condition with a sling. Damien Finn MD /[id number]
== END 2020-04-29 13:25 | disposition home or self-care (01) ==
LOC: JP.SDS 06:35
PROVIDERS: ATTEND Specialist
DX: S43.431A Superior glenoid labrum lesion of right shoulder, initial encounter (principal); M19.011 Primary osteoarthritis, right shoulder; M75.21 Bicipital tendinitis, right shoulder; M75.41 Impingement syndrome of right shoulder
CPT/HCPCS: 36415; 80053; 85027; C1713; J0690; J2250; J2704; J3010; J3490; J7060

== ENCOUNTER 2025-03-01 11:10 | Emergency (ER) | payer OTHER ==
[2025-03-01 12:38] LABS: BASOPHILS ABSOLUTE AUTO 0.08 K/uL (0.00-0.10); BASOPHILS PERCENT AUTO 0.8 % (0.1-1.3); EOSINOPHILS ABSOLUTE AUTO 0.13 K/uL (0.00-0.40); EOSINOPHILS PERCENT AUTO 1.2 % (0.0-5.4); IMMATURE GRAN PERCENT AUTO 0.2 % (0.0-0.7); LYMPHOCYTES ABSOLUTE AUTO 2.59 K/uL (0.8-3.3); LYMPHOCYTES PERCENT AUTO 24.6 % (11.4-47.7); MONOCYTES ABSOLUTE AUTO 1.00 K/uL (0.20-0.90); MONOCYTES PERCENT AUTO 9.5 % (3.3-12.6); NEUTROPHILS ABSOLUTE AUTO 6.71 K/uL (1.0-7.6); NEUTROPHILS PERCENT AUTO 63.7 % (40.0-78.1); PLATELET COUNT,PLT 360 K/uL (130-375); RED BLOOD CELL COUNT 5.95 M/uL (4.14-5.76); WHITE BLOOD CELL COUNT,WBC 10.5 K/uL (3.2-11.0)
[2025-03-01 12:39] LABS: IMMATURE GRAN ABSOLUTE AUTO 0.02 K/uL (0.00-0.23)
[2025-03-01 12:52] LABS: A/G RATIO 1.3 (1.2-2.2); ALANINE AMINOTRANSFERASE,ALT 97 U/L (12-78); ASPARTATE AMNIOTRANSFERASE,AST 43 U/L (15-37); BILIRUBIN TOTAL 0.7 mg/dL (0.2-1.0); BLOOD UREA NITROGEN,BUN 16 mg/dL (7-18); CARBON DIOXIDE,CO2 29 mmol/L (21-32); CHLORIDE,CL 99 mmol/L (100-108); CREATININE 1.4 mg/dL (0.8-1.3); EST CRCL DRUG DOSING (CG) 53.77 mL/min; ESTIMATED GFR 58 mL/min (>60); GLUCOSE RANDOM 101 mg/dL (74-106); POTASSIUM,K 3.8 mmol/L (3.6-5.2); PROTEIN TOTAL,TP 7.7 g/dL (6.4-8.2); SODIUM,NA 138 mmol/L (140-148)
[2025-03-01 12:56] LABS: SEDIMENTATION RATE MANUAL 1 mm/hr (0-20)
[2025-03-01 13:08] LABS: CORONAVIRUS COVID-19 NAA NEGATIVE (NEGATIVE); INFLUENZA A NAA NEGATIVE (NEGATIVE); INFLUENZA B NAA NEGATIVE (NEGATIVE); RESPIRATORY SYNCYTIAL VIR NAA NEGATIVE (NEGATIVE)
[2025-03-01 13:08] LABS: APPEARANCE,URINE SLIGHTLY CLOUDY (CLEAR); GLUCOSE,URINE NEGATIVE (NEGATIVE); OCCULT BLOOD,URINE NEGATIVE (NEGATIVE)
[2025-03-01 13:14] LABS: SQUAMOUS EPITHELIAL CELLS,UR NOT SEEN /HPF
[2025-03-01] MEDS: Iopamidol 612 MG/ML 100 ML Bottle IV PRN (13:31)
[2025-03-01] MEDS: Sodium Chloride 0.9% 10 ML Syringe FLUSH PRN (13:31)
[2025-03-01] MEDS: Ketorolac 30 MG/ML SDV IVPUSH ONE (14:54)
== END 2025-03-01 15:59 | disposition home or self-care (01) ==
LOC: JP.ED 11:10
DX: Z88.8 Allergy status to other drugs, medicaments and biological substances (principal); Z79.899 Other long term (current) drug therapy; E78.00 Pure hypercholesterolemia, unspecified; K21.9 Gastro-esophageal reflux disease without esophagitis; Z90.49 Acquired absence of other specified parts of digestive tract; E86.0 Dehydration
CPT/HCPCS: 36415; 74177; 80053; 81001; 83690; 85025; 85651; 86140; 87637; 96361; 96374; 99284; J1885; J7030; Q9967

== ENCOUNTER 2025-03-08 20:25 | Emergency (ER) | payer OTHER ==
[2025-03-08 20:54] LABS: BASOPHILS ABSOLUTE AUTO 0.09 K/uL (0.00-0.10); BASOPHILS PERCENT AUTO 0.7 % (0.1-1.3); EOSINOPHILS ABSOLUTE AUTO 0.15 K/uL (0.00-0.40); EOSINOPHILS PERCENT AUTO 1.1 % (0.0-5.4); IMMATURE GRAN ABSOLUTE AUTO 0.04 K/uL (0.00-0.23); IMMATURE GRAN PERCENT AUTO 0.3 % (0.0-0.7); LYMPHOCYTES ABSOLUTE AUTO 2.90 K/uL (0.8-3.3); LYMPHOCYTES PERCENT AUTO 21.7 % (11.4-47.7); MONOCYTES ABSOLUTE AUTO 1.13 K/uL (0.20-0.90); MONOCYTES PERCENT AUTO 8.4 % (3.3-12.6); NEUTROPHILS ABSOLUTE AUTO 9.07 K/uL (1.0-7.6); NEUTROPHILS PERCENT AUTO 67.8 % (40.0-78.1); PLATELET COUNT,PLT 317 K/uL (130-375); RED BLOOD CELL COUNT 4.87 M/uL (4.14-5.76); WHITE BLOOD CELL COUNT,WBC 13.4 K/uL (3.2-11.0)
[2025-03-08] MEDS: Iopamidol 612 MG/ML 100 ML Bottle IV PRN (21:02)
[2025-03-08] MEDS: Sodium Chloride 0.9% 10 ML Syringe FLUSH PRN (21:02)
[2025-03-08 21:09] LABS: INR 1.1
[2025-03-08 21:16] LABS: A/G RATIO 1.2 (1.2-2.2); ALANINE AMINOTRANSFERASE,ALT 66 U/L (12-78); ASPARTATE AMNIOTRANSFERASE,AST 46 U/L (15-37); BILIRUBIN TOTAL 0.6 mg/dL (0.2-1.0); BLOOD UREA NITROGEN,BUN 17 mg/dL (7-18); CARBON DIOXIDE,CO2 27 mmol/L (21-32); CHLORIDE,CL 104 mmol/L (100-108); CREATINE KINASE,CK 463 U/L (39-308); CREATININE 1.3 mg/dL (0.8-1.3); EST CRCL DRUG DOSING (CG) 40.37 mL/min; ESTIMATED GFR 64 mL/min (>60); GLUCOSE RANDOM 120 mg/dL (74-106); POTASSIUM,K 3.3 mmol/L (3.6-5.2); PROTEIN TOTAL,TP 6.8 g/dL (6.4-8.2); SODIUM,NA 142 mmol/L (140-148); TROPONIN I HIGH SENSITIVITY 7.2 pg/mL (<=60.3)
== END 2025-03-08 22:40 | disposition home or self-care (01) ==
LOC: JP.ED 20:25
DX: S99.921A Unspecified injury of right foot, initial encounter (principal); K21.9 Gastro-esophageal reflux disease without esophagitis; E66.9 Obesity, unspecified; Z68.1 Body mass index [BMI] 19.9 or less, adult; Z90.49 Acquired absence of other specified parts of digestive tract; Z88.5 Allergy status to narcotic agent; Z88.8 Allergy status to other drugs, medicaments and biological substances; W11.XXXA Fall on and from ladder, initial encounter
CPT/HCPCS: 36415; 71260; 73080; 73562; 73610; 73620; 74177; 80053; 82550; 84484; 85025; 85610; 99284; A9270; Q9967